=== PATIENT | female | born 1935 | race Caucasian/White ===

== ENCOUNTER 2016-12-17 13:48 | Emergency (ER) | payer OTHER ==
[~2016-12-17] VITALS: Ht 152.4 cm; Wt 67.9 kg
[~2016-12-17 13:48] MED LIST: ATIVAN1 MG PO; BABY ASPIRIN81 M1 PO; CHOLESTEROL MED; CRESTOR40 MG PO; Ecotrin PO; OMEGA 3-6-91200 MG PO; PLAVIX75 MG PO; PRILOSEC20 MG PO; ZETIA10 MG PO
[2016-12-17 16:04] LABS: HEMATOCRIT 41.8 % (36.0-46.0); MCH 32.4 PG (29.0-34.0); MCHC 34.2 G/DL (30.0-36.0); MCV 94.8 FL (83-99); MEAN PLAT.VOLUME 10.9 uM^3 (9.5-12.4); PLATELET COUNT 187 K/uL (156-360); RBC DIS.WIDTH-CV 11.6 % (11.8-14.6); RBC DIS.WIDTH-SD 40.6 % (39-53); RED BLOOD COUNT 4.41 M/uL (3.80-5.20); WHITE BLOOD COUNT 17.5 K/uL (4.1-10.2)
[2016-12-17 16:18] LABS: CHLORIDE 105 mEq/L (99-109); POTASSIUM 4.5 mEq/L (3.7-5.4); SODIUM 135 mEq/L (136-147)
[2016-12-17 16:20] LABS: GLUCOSE 130 mg/dL (70-99)
[2016-12-17 16:21] LABS: ANION GAP 12 MEQ/L (2-14)
[2016-12-17 16:22] LABS: TOTAL BILIRUBIN 0.9 mg/dL (0.0-1.0)
[2016-12-17 16:23] LABS: ALKALINE PHOSPHATASE 56 IU/L (3-129)
[2016-12-17 16:24] LABS: GFR ESTIMATE (CALCULATED) > 59 mL/min/
[2016-12-17 16:25] LABS: UREA NITROGEN (BUN) 11 mg/dL (9-23)
[2016-12-17 16:49] LABS: ADD MIUA? YES; BILIRUBIN NEGATIVE; BLOOD SMALL; COLOR YELLOW ((YELLOW)); GLUCOSE (STRIP) NEGATIVE; KETONES NEGATIVE; LEUKOCYTES NEGATIVE; NITRITE NEGATIVE; PROTEIN (STRIP) NEGATIVE; SPECIFIC GRAVITY 1.011 (1.000-1.030); UROBILINOGEN 0.2 MG/DL (0.2-1.0)
[2016-12-17 16:54] LABS: BACTERIA NONE SEEN /HPF; EPITHELIAL CELLS RARE /HPF; MUCUS TRACE /LPF; RED BLOOD CELLS 0-5 /HPF (0-5); UCUL ADDED? NO; WHITE BLOOD CELLS 0-5 /HPF (0-5)
[2016-12-17] MEDS ORDERED: STOOL SOFTENER250 MG PO (18:28)
[2016-12-17] MEDS ORDERED: ANUSOL HC,ANUCO25 MG PR (18:28)
[2016-12-17 18:52] VITALS: BP 160/85
== END 2016-12-17 18:53 | disposition home or self-care (01) ==
LOC: EME 13:48
PROVIDERS: Nurse Practitioner Family
DX: K59.00 Constipation, unspecified (principal); K64.9 Unspecified hemorrhoids; D72.829 Elevated white blood cell count, unspecified; I48.91 Unspecified atrial fibrillation; Z79.01 Long term (current) use of anticoagulants; E78.5 Hyperlipidemia, unspecified; K21.9 Gastro-esophageal reflux disease without esophagitis; Z95.2 Presence of prosthetic heart valve
CPT/HCPCS: 74020; 74177; 80053; 81003; 85027; 99281; 99284; J7040